=== PATIENT | female | born 1940 | race Caucasian/White ===

== ENCOUNTER 2025-03-31 22:06 | Observation (INO) | payer MEDICARE, SELFPAY ==
[2025-03-31] VITALS (9 sets, daily range): BP systolic 93–128; BP diastolic 51–95; BMI 25.3
[2025-03-31 16:03] LABS: Glucose - Point of Care 161 mg/dl (70-99)
[2025-03-31 16:13] LABS: Hematocrit 42.3 % (37.0-47.0); Hemoglobin 14.2 g/dL (12.0-16.0); Mean Corp Hgb Conc. 33.6 g/dL (33.0-37.0); Mean Corpuscular Volume 88.3 fL (81.0-99.0); Nucleated Red Blood Cells % 0 %; Platelet Count 272 10^3/uL (130-400); Red Cell Dist. Width 13.3 % (11.5-14.5)
[2025-03-31 16:22] LABS: Blood Urea Nitrogen 41 mg/dl (7-17); Calcium 8.7 mg/dl (8.4-10.2); Carbon Dioxide 16 mmol/L (22-30); Chloride 105 mmol/L (98-107); Estimated Creatinine Clearance 33 ml/min; Glucose 165 mg/dl (70-99); Sodium 133 mmol/L (135-145); eGFR 55.21
[2025-03-31 17:08] LABS: ALT (SGPT) 22 U/L (0-35); AST (SGOT) 28 U/L (14-36); Albumin 4.4 g/dl (3.5-5.0); Alkaline Phosphatase 80 U/L (38-126); Blood Urea Nitrogen 40 mg/dl (7-17); Calcium 9.1 mg/dl (8.4-10.2); Carbon Dioxide 19 mmol/L (22-30); Chloride 107 mmol/L (98-107); Estimated Creatinine Clearance 33 ml/min; Glucose 156 mg/dl (70-99); Potassium 4.9 mmol/L (3.5-5.1); Sodium 134 mmol/L (135-145); Total Protein 7.3 g/dl (6.3-8.2); eGFR 55.21
[2025-03-31] MEDS: NSS 500 IV ×2 (18:49→21:28)
[2025-03-31] MEDS: TYLENOL 650 MG PO (18:51)
[2025-03-31 18:55] LABS: Urine Character Clear (Clear)
[2025-03-31 19:05] LABS: Urine Squamous Cell 0-2 /LPF (Few)
[2025-03-31 19:06] LABS: Urine White Cell 0-2 /HPF (0-5)
--- NOTE | 2025-03-31 19:46 | EDRN ---
Per ER Dr Alcantar verbal order, the pt was assisted to ambulate in the ER treatment room for ambulation trial. the pts friend Lara reports the pt normally walks bent over with her cane and the pt can usually ambulate throughout her home slowly
without any assistance other than her cane. the pt required assist x2 staff members to walk 5 feet, her gait is unsteady, and after walking 5 feet the pt stated 'I can't walk anymore, I have to sit down.'
the pts friend Lara stated the pt can normally walk around her home with just her cane.
ER Dr Alcantar was notified of above.
--- NOTE | 2025-03-31 21:16 | ED.GENMED ---
History of Present Illness
General
Chief Complaint: Fainting/Passed Out
Source: patient and care rep
Time Seen by Provider: 03/31/25 16:13
History of Present Illness
History of Present Illness:
Note:
CHIEF COMPLAINT(S)
The patient is confused and does not know why she is here. A friend of the family did arrive later reporting that she went to go to the bathroom and was sitting on the toilet and then she did not hear her talking and noted that she was slumped
over. Friend/caregiver states that she was unresponsive for a brief period time. She is not sure she took an extra dose of her losartan today. Friend/caregiver states that she checks in on her every day with that the patient does live alone. The
patient offers no complaints of chest pain or shortness of breath. She denies headaches. She denies motor weakness.
HISTORY OF PRESENT ILLNESS
The patient is an 84-year-old female with a note history of dementia. She presented to the emergency department after reportedly feeling unwell. Per the conversation, she does not recall specific details clearly. At the time of evaluation. The
patient has no active complaints of chest pain or shortness of breath. Her blood pressure was noted to be 113/70 mmHg.
CHRONIC MEDICAL CONDITIONS SIGNIFICANTLY AFFECTING CARE
The patient has a known history of dementia, which is a significant factor in her current presentation and care needs.
PHYSICAL EXAM
General: Alert but with confusion, no acute distress noted.
Skin: Warm, dry.
Head: Normocephalic, atraumatic.
Neck: Supple, trachea midline.
Eyes, Ears, Nose, Mouth, and Throat: Oral mucosa moist.
Cardiovascular: Normal peripheral perfusion, no edema observed in lower extremities
Respiratory: Respirations are non-labored.
Gastrointestinal: Abdomen nondistended.
Back: Normal range of motion, normal alignment.
Musculoskeletal: Normal range of motion, normal strength; patient able to wiggle feet without difficulty.
Neurological: Alert and oriented to person but disoriented to place and time, no focal neurological deficit observed.
Psychiatric: Cooperative though with noted confusion, appropriate mood and affect given history of dementia.
PLAN
Monitor the patients condition closely in the emergency setting, focusing on her vital signs and cognitive status considering her history of dementia. Provide support and ensure she is comfortable. Evaluate her current living situation to assess
safety and care needs post-discharge.
DIFFERENTIAL DIAGNOSIS
The Differential Diagnosis includes, in no particular order and is not limited to:
1. Transient Ischemic Attack (TIA)
2. Orthostatic Hypotension
3. Syncope/vasovagal syncope
4. Dehydration
5. Electrolyte Imbalance
6. Cerebrovascular Accident (Stroke)
7. Uncontrolled Hypertension
8. Cardiac Arrhythmia
9. Seizure
10. Medication Side Effect
Disposition:
SUMMARY OF ENCOUNTER
The patient is an 84-year-old female who presented to the emergency department following an episode of syncope while on the toilet. She lives at home alone but has a friend who checks in daily. The incident was noted when her caregiver observed her
unresponsive and slumped over briefly. The caregiver reported no suspected head injury as there was no audible fall. The patient complained of back pain and experienced significant difficulty ambulating, requiring two-person assistance. Laboratory
tests revealed mild dehydration. A head CT showed no signs of trauma, while a lumbar CT indicated a subtle anterior loss of height at the L3 vertebra, suggesting a possible acute compression fracture. Given these findings and her inability to
ambulate independently, the decision was made to admit the patient for further observation and physical therapy evaluation. A vasovagal episode is suspected as the cause of the syncope, although she does have frequent PVCs on telemetry monitoring
DISPOSITION
Admit for further observation and physical therapy evaluation.
ASSESSMENT
1. Syncope, likely vasovagal episode
2. Suspected acute L3 vertebral compression fracture
3. Mild dehydration
PLAN
1. Admit for observation and initiate physical therapy to assist with ambulation.
2. Monitor for further episodes of syncope and evaluate hydration levels.
3. Reassess pain management needs and consider orthopedic consultation if necessary.
4. Continue monitoring vital signs and cognitive status given the history of dementia.
INDEPENDENT REVIEW OF LABS AND INTERPRETATION OF TESTS
- My independent review of CBC indicates leukocytosis with a WBC count of 14.8 and neutrophilia with neutrophils at 94.7%.
- My independent review of chemistry panel shows mild dehydration with blood urea nitrogen/creatinine (BUN/Cr) ratio of 40:1.0 and glucose level of 156 mg/dL.
- My independent interpretation of the head CT reveals no signs of trauma.
- My independent interpretation of lumbar CT shows a subtle anterior loss of height at the L3 vertebra body, compatible with a compression fracture of uncertain age, possibly acute.
MEDICAL DECISION MAKING
- Complexity of Data Reviewed: Chronic conditions affecting care: Dementia. Differential Diagnosis includes:
1. Transient Ischemic Attack (TIA)
2. Orthostatic Hypotension
3. Syncope
4. Dehydration
5. Electrolyte Imbalance
6. Cerebrovascular Accident (Stroke)
7. Uncontrolled Hypertension
8. Cardiac Arrhythmia
9. Seizure
10. Medication Side Effect
- Data:
Category 1
- My independent interpretation of head CT and lumbar CT.
Category 2
- Input from caregiver as an independent historian confirming no head injury due to lack of fall.
-Risk:
Care significantly affected by Social Determinants of Health: Lives alone, relies on friends for daily check-ins.
DIAGNOSIS
- Syncope, suspected vasovagal episode (R55)
- Possible acute L3 vertebral compression fracture (M48.50XA)
- Mild dehydration (E86.0)
- Premature ventricular contractions
Phy Exam
Physical Exam
Physical Exam:
.
Course
Orders/Labs/Results
Orders:
Orders
03/31/25 Breakfast
Regular
03/31/25 15:38
Electrocardiogram (*1) Urgent
Reason for Study: Chest Pain
EKG- Treatment ONCE
03/31/25 15:55
Basic Metabolic Panel Urgent
Complete Blood Count/With Diff Urgent
03/31/25 16:39
CMP [Comprehensive Metabolic Panel] Urgent
Magnesium Urgent
Comment: ADD ON
03/31/25 18:42
Straight cath- Treatment ONCE
03/31/25 18:43
Urinalysis Reflex To Culture Urgent
Date Specimen was Collected: 03/31/25
Time Specimen was Collected: 18:42
Urine Microscopic Reflex Cult Urgent
03/31/25 18:48
Acetaminophen [Tylenol] 650 mg .ROUTE .STK-MED ONE
03/31/25 18:49
0.9% Sodium Chloride 500 ml [Nss] 500 ml IV BOLUS
Acetaminophen [Tylenol] 650 mg PO NOW STA
03/31/25 19:55
CT Head W/o Iv Contrast Urgent
Comment:
Reason For Exam: syncope, ? fall
CT Lumbar Spine W/o Iv Contras Urgent
Comment:
Reason For Exam: back pain, ? fall
03/31/25 21:17
0.9% Sodium Chloride 500 ml [Nss] 500 ml IV BOLUS
03/31/25 21:45
Admit/Transfer Patient As Directed
Co-Sign Provider:
Level of Care: Observation services
Assign to:: Telemetry
Physician / Group: nir
Diagnosis: syncope
Reason for Telemetry: Syncope
Date to Stop Telemetry: 04/02/25
Time to Stop Telemetry: 11:00
03/31/25 21:46
PRN Pain Medication Management As Directed
May give lesser potent ordered pain med per pt: Yes
preference::
Protocol:: Medication orders for pain may be administered in a
manner that supports deferring to patient preference
when the pt is:
- Requesting an ordered lesser potent pain medication.
Least to most potent pain medications are defined
as: acetaminophen < NSAID < tramadol < opioids
(morphine, oxycodone, hydromorphone).
- Requesting a lesser dose of the same medication IF
ORDERED.
- Requesting a less intrusive route of administration
if both routes are prescribed by the provider (PO <
IV).
03/31/25 21:47
Code Status As Directed
Resuscitation Status: Full Code
03/31/25 21:56
Add On- LAB Stat
Tests Added?: magnesium
03/31/25 23:38
0.9% Sodium Chloride 1000 ml [Nss] 1,000 ml IV 80 mls/hr
Acetaminophen [Tylenol] 650 mg PO Q4HPRN PRN
Bisacodyl [Dulcolax] 10 mg RECTAL [id number] PRN
Docusate W/Senna [Senokot-S] 1 tablet PO BIDPRN PRN
Polyethylene Glycol Powder [Miralax] 17 grams PO DAILYPRN PRN
03/31/25 23:38
Echo 2D MMode Color/Doppler Routine
Reason for Study: syncope
CARDIOLOGY CONSULT Routine
Consulting Provider: Filippo Larson
Was physician already notified: No
Reason for consult: syncope
Consult Notification Routine
Specialty to Notify: Cardiology
Activity As Directed
Activity Level: As Tolerated
Vital Signs As Directed
Frequency: Per unit guidelines
Ot Eval And Treat Routine
Pt Eval And Treat Routine
Activity Level: As Tolerated
DX Deep Vein Thrombosis Video Routine
04/01/25 06:00
Basic Metabolic Panel IN AM
Cardiovascular Evaluation IN AM
Complete Blood Count/No Diff IN AM
Magnesium IN AM
TSH Reflex To Free T4 IN AM
04/01/25 18:00
Enoxaparin Sodium [Lovenox] 40 mg SC QPM
04/02/25 11:00
DC Protocol for Telemetry ONCE
Abnormal Lab Results
03/31/25 03/31/25 03/31/25
15:55 16:01 16:39
WBC 14.8 H 10^3/uL
(4.8-10.8)
Abs Immat Gran (auto) 0.1 H 10^3/uL
(0-0.05)
Absolute Neuts (auto) 14.0 H 10^3/uL
(1.4-6.5)
Absolute Lymphs (auto) 0.3 L 10^3/uL
(1.2-3.4)
Neutrophils % 94.7 H %
(42.2-75.2)
Lymphocytes % 1.8 L %
(20.5-51.1)
Sodium 133 L mmol/L 134 L mmol/L
(135-145) (135-145)
Carbon Dioxide 16 L mmol/L 19 L mmol/L
(22-30) (22-30)
BUN 41 H mg/dl 40 H mg/dl
(7-17) (7-17)
Glucose 165 H mg/dl 156 H mg/dl
(70-99) (70-99)
Urine Ketones
Ur Occult Blood Reflex
Urine RBC
Urine Bacteria (Reflex)
Urine Albumin (Reflex)
POC Glucose 161 H mg/dl
(70-99)
03/31/25
18:43
WBC
Abs Immat Gran (auto)
Absolute Neuts (auto)
Absolute Lymphs (auto)
Neutrophils %
Lymphocytes %
Sodium
Carbon Dioxide
BUN
Glucose
Urine Ketones 1+ A
(Negative)
Ur Occult Blood Reflex 1+ A
(Negative)
Urine RBC 7-10 A /HPF
(0-2)
Urine Bacteria (Reflex) Few A
(Negative)
Urine Albumin (Reflex) 2+ A
(Neg - Trace)
POC Glucose
03/31/25 15:55
03/31/25 16:39
Vital Signs
Initial and Last Documented VS:
Initial Vital Signs
Temp Pulse Resp BP Pulse Ox
97.3 F 101 20 128/65 95
03/31/25 15:40 03/31/25 15:40 03/31/25 15:40 03/31/25 15:40 03/31/25 15:40
Last Documented Vital Signs
Temp Pulse Resp BP Pulse Ox
98.9 F 89 17 101/57 92
03/31/25 16:32 03/31/25 22:30 03/31/25 22:12 03/31/25 22:12 03/31/25 22:15
*Pulse Oximetry
SaO2: 94
Oxygen Mode of Delivery: Room air
Patient hypoxic: no
*Critical Care Note
Total Time (30-74mins, 75-104mins- exclusive of procedures): Not Applicable
ED Attending Note
-
Portions of this chart may have been created with voice recognition software.� Occasional wrong word or��sound alike� substitutions may have occurred due to the inherent limitations of voice recognition software.
Discharge Plan
Departure
Patient Disposition: Admit
Date of Disposition: 03/31/25
Time of Disposition: 21:17
Admit to: Telemetry
Presentation/result/management discussed w/ accepting MD/DO: Hospitalist
Discharge Problem:
Syncope, Compression fracture of lumbar vertebra, Fluid volume depletion, Premature ventricular contraction
Interventions
Interventions:
*Risk Screen - Suicide Last Done: 03/31/25 15:59
*General Assessment Last Done: 03/31/25 15:59
*Neglect/Abuse Screening Last Done: 03/31/25 15:59
*ED COVID-19 Vaccine History Last Done: 03/31/25 15:59
*ED Influenza Vaccine History Last Done: 03/31/25 15:59
[facility] Fall Risk Assessment Tool Last Done: 03/31/25 15:57
*Nursing Disposition Last Done: 03/31/25 23:34
ED- Cardiac Assessment Last Done: 03/31/25 16:00
ED- Neurological Assessment Last Done: 03/31/25 16:00
Discharge Date and Time
Discharge Date/Time: 03/31/25 23:35
--- NOTE | 2025-03-31 21:26 | HPS.HSE ---
Addendum entered and electronically signed by Faith Fish MD 03/31/25 22:14:
This is an addendum to the H&P written by Sandy Garcia on 03/31/2025. �Patient seen and examined independently with LOCOMOTIVE ENGINEER DIESEL.
84-year-old female past medical history of hypertension, dementia, presenting with syncopal episode while in the toilet. �There was no fall or head injury.� Patient denies back pain. She denies any infectious symptoms, dizziness, chest pain, or
shortness of breath.�
Patient lives alone but has a friend who checks up on her at times.� She may have taken extra dose of Losartan.�
Vital signs show heart rate up to 103. �Blood pressure as low as 98/57.
Labs show leukocytosis of 14.8. UA unremarkable.�
EKG shows sinus rhythm with frequent PVCs.
CT head shows no evidence of acute intracranial abnormality. �Lumbar CT scan shows subtle anterior loss of height of L3 vertebral body compatible with compression fracture of uncertain age could be acute.
Patient with syncopal episode likely vasovagal versus less likely secondary to symptomatic PVCs.� PVCs likely reactive from hypotension. Check orthostatics. �IV fluids given. �Hold losartan. �Telemetry monitoring.� Check magnesium and TSH. Check
echocardiogram. Cardiology consulted.�
Patient without back pain so compression fracture likely old.��
Original Note:
Family Physician
-
Family Physician: * NONE
Chief Complaint
-
syncope
History of Present Illness
84-year-old female with a note history of dementia,HTn presented after she was found sitting on the toilet slumped over. she was not responding. patient lives alone and don't have a family. her neighbor checks on her every day. . She presented to
the emergency department after reportedly feeling unwell.patient denied ELIZABETH, dizzy.denied fever, chills, cough,congestion. denied chest pain,sob. denied abdominal pain,n,v,d. denied dysuria or hematuria.
admitting for further management. patient recived fluids in ER.
Medical History
Past Medical History
Past Medical History: Reports Other
Additional Past Medical History:
carpel tunnel syndrome
back pain
knee derangement
squamous cell ca
Past Surgical History: Reports Other
Additional Past Surgical History:
volvulus surgery
arthritis
growth in nose removal
Social History
Tobacco: Non-smoker
Alcohol: None
Drug: None
Personal: Single
Living: Alone
Family History
Family History: Not pertinent
Allergies / Home Medications
Allergies reflects when Allergies were last updated in [facility].
Home Medications with original date entered in [facility]
Allergy/Medication List:
Allergies
Allergy/AdvReac Type Severity Reaction Status Date / Time
diphenhydramine HCl (From Allergy Unknown Verified 03/31/25 15:52
Benadryl)
Home Medications
losartan 100 mg tablet 100 mg PO DAILY 03/31/25
multivitamin 1 tab PO DAILY 03/31/25
Review of Systems
-
Constitutional: Reports No Symptoms
EENT: Reports No Symptoms
Respiratory: Reports No Symptoms
Cardiac: Reports No Symptoms
Abdomen/GI: Reports No Symptoms
: Reports No Symptoms
Musculoskeletal: Reports No Symptoms
Skin: Reports No Symptoms
Neurological: Reports No Symptoms
Endocrine: Reports No Symptoms
Hematologic/Lymphatic: Reports No Symptoms
Psych: Reports No Symptoms
Physical Exam
Vital Signs
Vital Signs
Temp Pulse Resp BP Pulse Ox
98.9 F 98 16 98/57 94
03/31/25 16:32 03/31/25 21:02 03/31/25 16:00 03/31/25 21:02 03/31/25 21:17
Physical Exam
General: Well Developed, Well Nourished and No Apparent Distress
HEENT: NormoCephalic, Moist mucous membranes and Atraumatic
Respiratory: Clear
Cardiac: S1/S2 and Regular Rhythm; No Murmur or Rub
GI: Soft, Non Tender, Non Distended and Normal Bowel Sounds; No Organomegaly
Rectal: Deferred by Provider
Musculoskeletal: No Clubbing, No Cyanosis and No Edema
Skin: No Rash
Neuro: Nonfocal/grossly intact
Psych: Confused
Laboratory Results
-
03/31/25 15:55
03/31/25 16:39
Laboratory Results
Total Bilirubin 0.7 mg/dl (0.2-1.3) 03/31/25 16:39
AST 28 U/L (14-36) 03/31/25 16:39
ALT 22 U/L (0-35) 03/31/25 16:39
Alkaline Phosphatase 80 U/L (38-126) 03/31/25 16:39
Data Reviewed
-
CT Scan: Report Reviewed by me
Lab Data: Labs Reviewed by me
Impression/Plan
-
#syncope likely vasovagal
-Compression fracture likely chronic-patient denied back pain
-obtain orthostatics
-obtain ECHO
-EKG with sinus rhythm with PVCs
-PT/TO consulted
-tsh in am
-lumbar spine CT with Subtle anterior loss of height of the L3 vertebral body with slight irregularity of the anterior superior margin of the vertebral body. Findings are compatible with a compression fracture, age uncertain, but could be acute.
Please correlate with any localized symptoms.Diffuse degenerative changes of the lumbar spine as described.No convincing evidence for fracture of the sacrum.
-head CT with no evidence of acute intracranial abnormality.Within the posterior aspect of the right globe, there is a linear density. Etiology of this density is uncertain, but question whether it could represent posterior displacement of the lens
replacement from previous cataract surgery.
#leukocytosis likely reactive
-wbc 14.8, patient is afebrile
-ctm
#essential HTN
-losartan held due to hypotension
#DVT Prophylaxis
-Lovenox
#CODE status
-full code
[2025-03-31 22:31] LABS: Magnesium 2.1 mg/dl (1.6-2.3)
[2025-04-01] VITALS (9 sets, daily range): BP systolic 93–137; BP diastolic 47–93; PULSE 99; O2SAT 96; BMI 24.7
[2025-04-01] MEDS: NSS 1000 IV (00:43)
--- NOTE | 2025-04-01 01:16 | PTCARENOTE ---
Pt arrived to unit via stretcher. Pt transferred from stretcher to bed. Pt AAOX1-2. Pt oriented to self and current president. Pt's VSS. Plan of care on going, call thurston within reach.
[2025-04-01] MEDS: TYLENOL 650 MG PO ×4 (02:52→21:17)
[2025-04-01 06:54] LABS: Hematocrit 33.6 % (37.0-47.0); Hemoglobin 11.5 g/dL (12.0-16.0); Mean Corp Hgb Conc. 34.2 g/dL (33.0-37.0); Mean Corpuscular Volume 87.3 fL (81.0-99.0); Platelet Count 229 10^3/uL (130-400); Red Cell Dist. Width 13.4 % (11.5-14.5)
[2025-04-01 07:17] LABS: Blood Urea Nitrogen 28 mg/dl (7-17); Calcium 8.5 mg/dl (8.4-10.2); Carbon Dioxide 16 mmol/L (22-30); Chloride 111 mmol/L (98-107); Estimated Creatinine Clearance 41 ml/min; Glucose 92 mg/dl (70-99); HDL Cholesterol 60 mg/dl; LDL Cholesterol, Calculated 73 mg/dl; Magnesium 2.0 mg/dl (1.6-2.3); Potassium 3.9 mmol/L (3.5-5.1); Sodium 134 mmol/L (135-145); Very Low Density Lipoprotein 13 mg/dl (0-30); eGFR > 60.00
[2025-04-01 08:17] LABS: INR 1.15; PT 14.8 Sec (11.4-14.6)
[2025-04-01 08:18] LABS: APTT 29.5 Sec (23.4-35.0)
[2025-04-01 08:22] LABS: D-Dimer 1.08 ug/mlFEU (0.00-0.50)
[2025-04-01] MEDS: NSS 500 IV (09:16)
--- NOTE | 2025-04-01 09:54 | W.PN.HOSP.TC ---
Today's Communication/Plan
-
see PN
Assessment / Plan
Assessment / Plan
84yo F with PMHx of HTN came after the syncope, found in her bathroom, where she went for diarrhea. Patient was unresponsive 2-3 min. Patient herself has no recollection of events. No additional diarrhea. As per friend she suspects that patient took
too much losartan, which was started back in September 2024, but there also was a concern for 'white coat HTN'
A/P
#Syncope
#PVCs
follow and corect electrolytes
Telemetry
Echo
Cardio consult
Head CT wityhout acute findings
TSH WNL
Probably combination of diarrhea, dehydration and iatrogenic hypotension as BP normal to low in the hospital - stop Losartan
#Chronic sinusitis
FLonase a soutpaient (not available in )
#Elevated ddimer
CTA chest and US LE to r/o VTE
#L3 compression Fx 2/2 back
with 15% loss of height
conservative mgmt with tylenol
Outpatient w/u for osteoporosis
#DJD
pt/OT
tylenol
#Duodenal diverticuum
#8mm and 2 cm L renal cyst
no follow up advised
#Possible posterior lens displacement
outpatient ophthalmology
DVT ppx lovenox
Full code
I have spent at least 51min reviewing chart, test results, communication with consultants, friend over the phone and providing direct patient care
Anticipated Discharge: Within 24 hours
Subjective/Interval History
-
Date of Service: April 01, 2025
Objective Data
-
Labs:
Laboratory Results
04/01/25 04/01/25
06:02 07:54
WBC 9.5
Hgb 11.5 L
Hct 33.6 L
Plt Count 229
PT 14.8 H
INR 1.15
APTT 29.5
Sodium 134 L
Potassium 3.9
Chloride 111 H
Carbon Dioxide 16 L
BUN 28 H
Creatinine 0.8
Glucose 92
Calcium 8.5
Vital Signs:
Vital Signs
Temp Pulse Resp BP Pulse Ox
98.9 F 87 16 112/68 96
04/01/25 07:49 04/01/25 07:49 04/01/25 07:49 04/01/25 07:49 04/01/25 07:49
Review of Systems
-
History Source: Patient
All other systems: Reviewed and negative
Physical Exam
-
General: No Apparent Distress
Respiratory: Clear to Auscultation
Cardiac: Regular Rhythm
GI: Soft, Nontender and Nondistended
Skin: Warm
Neuro: Awake, Alert, Oriented and AO x 3
Psych: Calm
--- NOTE | 2025-04-01 14:25 | PTOTSP ---
Delirium screening indicates possible delirium: 4AT score=10. Patient also has history of dementia.
--- NOTE | 2025-04-01 14:25 | CON.CAR ---
Addendum entered and electronically signed by Mahendra Sloan MD 04/01/25 15:50:
I saw and examined the patient.
The LETTER STAMPING MACHINE OPERATOR or PA's note was reviewed and I agree with the note.
Comment: General: Well developed, well nourished in NAD.
Neck: Supple, no JVD, HJR, carotids +2 B/L, no bruits bilaterally.
Heart: Non displaced PMI, RRR, no murmurs, No S3, S4, no rubs.
Lungs: Scattered rhonchi
Extremities: No clubbing, cyanosis or edema bilaterally.
Neuro: Grossly nonfocal, awake, alert and oriented x3.
Year has a history of dementia, hypertension. She is assisted by her neighbor. Patient does not have any recollection of the events. She thinks she was sitting on the toilet maybe having a bowel movement and apparently passed out. Her neighbor
found her brought her to the ER. Cardiology is consulted for syncope and PVCs.
Echocardiogram was normal. Patient has PVCs which are likely of no clinical significance.
Etiology of syncope is unclear. Likely was a vasovagal event if she was having a bowel movement. Will hold losartan for now. Will check orthostatics. She might need rehab.
Original Note:
Consultation
Consultation Request
Date/Time Consultation Performed: 04/01/25
Requesting Provider: Dr. Fish
Performing Provider: Carey Browne PA-C for Dr. Sloan
Reason for Consultation: syncope, PVCs
Medical History
-
Chief Complaint: syncope
History of Present Illness:
Patient is a 84-year-old female living independently with past medical history of dementia, hypertension who is assisted by a neighbor, Lara. Patient is unsure of what happened, but states she thinks she was sitting on the toilet, maybe having a
BM, and apparently passed out. She denies preceding lightheadedness, dizziness, chest pain, shortness of breath, but is a poor historian. On tele noted to be in SR with PVCs. Cardiology consulted for evaluation. She states she manages her own
medications. She states she sometimes forgets to take her medication but has never had issues with accidentally taking too many. Takes losartan 100mg daily. She states she has a checklist next to her pills to remind her.
PMH:
Dementia
HTN
Past Medical History
Past Medical History: Other (in HPI)
Social History
Tobacco: Non-Smoker
Alcohol: None
Living: Alone
Family History
Family History: Reviewed & Not Pertinent
Allergies / Home Medications
Allergy/AdvReac Type Severity Reaction Status Date / Time
diphenhydramine HCl (From Allergy Unknown Verified 03/31/25 15:52
Benadryl)
�Medication �Instructions �Recorded �Confirmed �Type
losartan 100 mg tablet 100 mg PO DAILY 03/31/25 03/31/25 History
multivitamin 1 tab PO DAILY 03/31/25 03/31/25 History
Review of Systems
-
History Source: Patient
All other systems: Negative unless noted
Physical Exam
Vital Signs
Temp Pulse Resp BP Pulse Ox
98 F 109 14 107/50 95
04/01/25 11:17 04/01/25 11:17 04/01/25 11:17 04/01/25 11:17 04/01/25 11:17
Lab Results
04/01/25 06:02
04/01/25 06:02
Physical Exam
General: No Apparent Distress and Comfortable
HEENT: Normocephalic, Anicteric and Moist Mucous Membranes
Respiratory: Clear and Non Labored Respirations
Cardiac: S1/S2 and Regular Rhythm
GI: Soft, Non Tender, Non Distended and Normal Bowel Sounds
Musculoskeletal: No Clubbing, No Cyanosis and No Edema
Skin: Warm and Dry
Neuro: Awake, Alert and Oriented (to self, place)
Impression / Plan
-
Primary Manufacture Specialist: none
Assessment:
Presentation with syncope
PVCs
Mod to severe TR
L3 compression fracture
Dementia
HTN
Large hiatal hernia by imaging
ECHO 04/01/25: EF 63%, mild AR, mild concentric LVH, moderate to severe TR, PAP 40 mmHg
Plan:
- Patient presented with episode of syncope, presumed vasovagal
- Head CT negative for acute abnormalities
- Echo with results as above, no prior to compare
- Sinus rhythm telemetry with PVCs at times in pattern of bigeminy, however no NSVT noted, follow while admitted. Patient asymptomatic
- Check orthostatic vital signs. Presently holding outpatient losartan
- PT/OT
- Case management following, may require SNF upon discharge
- Discussed with nursing
Data Reviewed
-
EKG: Tracing Personally Visualized and interpreted
CT Scan: Report Reviewed by me
Medical Tests (Nuc Med, Echo etc): Report Reviewed by me
Labs: Labs Reviewed by me
Old Records: Reviewed
--- NOTE | 2025-04-01 16:02 | CM ---
Addendum entered by Lesly Grider 04/01/25 16:23:
Pt lives in a one story home, no steps.
Addendum entered by Lesly Grider 04/01/25 16:10:
Patient and neighbor reviewed the OBS form; copy provided and signed copy placed in chart.
Original Note:
CM met with Trini and her neighbor to discuss discharge plans. Recommendation is for SNF, however pt is not agreeable to SNF. Plan is for discharge to home with hired caregivers and [facility].
Patient does have an option for SNF via [facility] if she changes her mind. I spoke with Efren Lees who will make a referral to social work so patient has additional support from [facility].
Pt's primary care provider is Ruth Tapia at [facility].
Pt's neighbor, Lara Raphael, is the primary contact and can be reached at [phone].
Plan: Discharge to home with [facility] and hired caregivers.
[2025-04-01] MEDS: LOVENOX 40 MG SC (17:25)
[2025-04-02] MEDS: LIDOCAINE 4% PATCH 1 PATCH TOPICAL ×2 (00:23→10:33)
[2025-04-02] MEDS: TORADOL 15 MG IV (00:25)
[2025-04-02 03:00] VITALS: BP 126/79
[2025-04-02 07:30] VITALS: BP 170/110
[2025-04-02] MEDS: TYLENOL 650 MG PO ×2 (08:26→15:49)
--- NOTE | 2025-04-02 09:55 | W.PN.HOSP.TC ---
Today's Communication/Plan
-
dc when bed available
Assessment / Plan
Assessment / Plan
84yo F with PMHx of HTN came after the syncope, found in her bathroom, where she went for diarrhea. Patient was unresponsive 2-3 min. Patient herself has no recollection of events. No additional diarrhea. As per friend she suspects that patient took
too much losartan, which was started back in September 2024, but there also was a concern for 'white coat HTN'. Seen by cardiology, recommended to stop Losartan. also found L3 compression Fx with mild-moderate pain. PT/OT recommended STR - medically
stable for d/c, pending patient and CM discussion to decide on dispo
A/P
#Syncope
#PVCs
follow and correct electrolytes
Telemetry
Echo: EF 63%, mild AR, mild LVH, moderate-severe TR, no regional wall motion abnormalities
Cardio consult: hold BP meds
Head CT without acute findings
TSH WNL
Probably combination of diarrhea, dehydration and iatrogenic hypotension as BP normal to low in the hospital - stop Losartan
#Chronic sinusitis
Flonase as outpaient (not available in ) bridging to Jessie
#Elevated ddimer
CTA chest and US LE r/o VTE
#L3 compression Fx 2/2 back
with 15% loss of height
conservative mgmt with Tylenol, Lidocaine patch
Outpatient w/u for osteoporosis
#DJD
pt/OT
tylenol
#Duodenal diverticulum
#8mm and 2 cm L renal cyst
no follow up advised
#Possible posterior lens displacement
outpatient ophthalmology
#Ambulatory dysfunction
PT/OT recommended rehab.
DVT ppx lovenox
Full code
I have spent at least 36min reviewing chart, test results, communication with consultants, friend over the phone and providing direct patient care
Anticipated Discharge: Today
Subjective/Interval History
-
Date of Service: April 02, 2025
Objective Data
-
Vital Signs:
Vital Signs
Temp Pulse Resp BP Pulse Ox
97.7 F 92 16 170/110 95
04/02/25 07:30 04/02/25 07:30 04/02/25 07:30 04/02/25 07:30 04/02/25 07:30
I&O
04/01/25 04/02/25 04/03/25
06:59 06:59 06:59
Intake Total 360 / 360
Balance 360 / 360
Review of Systems
-
History Source: Patient
All other systems: Reviewed and negative
Physical Exam
-
General: No Apparent Distress
HEENT: Normocephalic
Respiratory: Clear to Auscultation
Cardiac: Regular Rhythm
GI: Soft, Nontender and Nondistended
Musculoskeletal: No Clubbing, No Cyanosis and No Edema
Neuro: Awake, Alert, Oriented and AO x 3
Psych: Calm and Apparent Dementia
[2025-04-02 11:30] VITALS: BP 130/79; BP 139/79; BP 143/78; PULSE 89; PULSE 98
[2025-04-02] MEDS: REMOVE LIDOCAINE PATCH 1 PATCH REMOVE ×2 (11:48→20:34)
--- NOTE | 2025-04-02 12:10 | W.PN.CARDCBS ---
Today's Communication / Plan
-
Hypertensive at present with holding losartan
Will add low-dose Toprol with PVCs
Likely needs rehab and would consider monitor on discharge
Impression / Plan
-
Primary Electrical Troubleshooter: none
Assessment:
Presentation with syncope
PVCs
Mod to severe TR
L3 compression fracture
Dementia
HTN
Large hiatal hernia by imaging
ECHO 04/01/25: EF 63%, mild AR, mild concentric LVH, moderate to severe TR, PAP 40 mmHg
Plan:
Etiology of syncope felt to be vasovagal
She continues with PVCs which are likely of no clinical significance
She is now hypertensive with holding losartan
Will add low-dose Toprol
Likely will need rehab as patient is relying on neighbor for support
Will consider monitor on discharge
Progress Note - Electrical Troubleshooter
Subjective
Date of Service: April 02, 2025
No complaints
Objective
Labs:
04/01/25 06:02
04/01/25 06:02
Labs
Hgb 11.5 g/dL (12.0-16.0) L 04/01/25 06:02
Hct 33.6 % (37.0-47.0) L 04/01/25 06:02
Plt Count 229 10^3/uL (130-400) 04/01/25 06:02
PT 14.8 Sec (11.4-14.6) H 04/01/25 07:54
INR 1.15 04/01/25 07:54
APTT 29.5 Sec (23.4-35.0) 04/01/25 07:54
Sodium 134 mmol/L (135-145) L 04/01/25 06:02
Potassium 3.9 mmol/L (3.5-5.1) 04/01/25 06:02
BUN 28 mg/dl (7-17) H 04/01/25 06:02
Creatinine 0.8 mg/dL (0.6-1.0) 04/01/25 06:02
Glucose 92 mg/dl (70-99) 04/01/25 06:02
Vital Signs and I&O:
Vital Signs
Temp Pulse Resp BP Pulse Ox
97.7 F 92 16 170/110 95
04/02/25 07:30 04/02/25 07:30 04/02/25 07:30 04/02/25 07:30 04/02/25 07:30
Vital Signs
Temp Pulse Resp BP Pulse Ox
97.7 F 92 16 170/110 95
04/02/25 07:30 04/02/25 07:30 04/02/25 07:30 04/02/25 07:30 04/02/25 07:30
Intake & Output
03/31/25 04/01/25 04/02/25 04/03/25
06:59 06:59 06:59 06:59
Intake Total 360 / 360
Balance 360 / 360
Physical Exam
Physical Exam
General: Well developed, well nourished in NAD.
Neck: Supple, no JVD, HJR, carotids +2 B/L, no bruits bilaterally.
Heart: Non displaced PMI, RRR, no murmurs, No S3, S4, no rubs.
Lungs: Scattered rhonchi
Extremities: No clubbing, cyanosis or edema bilaterally.
Neuro: Grossly nonfocal, awake, alert and oriented x3.
[2025-04-02] MEDS: TOPROL XL 25 MG PO (12:30)
[2025-04-02] MEDS: ULTRAM 25 MG PO ×2 (14:37→20:43)
[2025-04-02 15:27] LABS: Hematocrit 36.8 % (37.0-47.0); Hemoglobin 12.5 g/dL (12.0-16.0); Mean Corp Hgb Conc. 34.0 g/dL (33.0-37.0); Mean Corpuscular Volume 86.2 fL (81.0-99.0); Nucleated Red Blood Cells % 0 %; Platelet Count 244 10^3/uL (130-400); Red Cell Dist. Width 13.9 % (11.5-14.5)
[2025-04-02 15:50] LABS: ALT (SGPT) 19 U/L (0-35); AST (SGOT) 27 U/L (14-36); Albumin 3.5 g/dl (3.5-5.0); Alkaline Phosphatase 75 U/L (38-126); Blood Urea Nitrogen 19 mg/dl (7-17); Calcium 8.7 mg/dl (8.4-10.2); Carbon Dioxide 19 mmol/L (22-30); Chloride 108 mmol/L (98-107); Estimated Creatinine Clearance 36 ml/min; Glucose 81 mg/dl (70-99); Potassium 3.7 mmol/L (3.5-5.1); Sodium 135 mmol/L (135-145); Total Protein 6.2 g/dl (6.3-8.2); eGFR > 60.00
[2025-04-02 16:00] VITALS: BP 145/88
[2025-04-02] MEDS: LOVENOX 40 MG SC (18:02)
[2025-04-02 19:30] VITALS: BP 133/85
[2025-04-02 23:00] VITALS: BP 141/91
[2025-04-03] MEDS: MORPHINE SULFATE 1 MG IV (02:13)
[2025-04-03 03:36] VITALS: BP 143/88
[2025-04-03 07:30] VITALS: BP 143/76
[2025-04-03] MEDS: LIDOCAINE 4% PATCH 1 PATCH TOPICAL (09:40)
[2025-04-03] MEDS: TOPROL XL 25 MG PO (09:43)
[2025-04-03] MEDS: COLACE 100 MG PO ×2 (09:43→20:25)
[2025-04-03] MEDS: ULTRAM 25 MG PO ×2 (09:46→18:33)
--- NOTE | 2025-04-03 11:12 | W.PN.HOSP.TC ---
Today's Communication/Plan
-
medically stable for d/c - CM for rehab
Assessment / Plan
Assessment / Plan
84yo F with PMHx of HTN came after the syncope, found in her bathroom, where she went for diarrhea. Patient was unresponsive 2-3 min. Patient herself has no recollection of events. No additional diarrhea. As per friend she suspects that patient took
too much losartan, which was started back in September 2024, but there also was a concern for 'white coat HTN'. Seen by cardiology, recommended to stop Losartan. also found L3 compression Fx with mild-moderate pain. PT/OT recommended STR - medically
stable for d/c, pending patient and CM discussion to decide on dispo
A/P
#Syncope
#PVCs
follow and correct electrolytes
Telemetry
Echo: EF 63%, mild AR, mild LVH, moderate-severe TR, no regional wall motion abnormalities
Cardio consult: hold BP meds
Head CT without acute findings
TSH WNL
Probably combination of diarrhea, dehydration and iatrogenic hypotension as BP normal to low in the hospital - stop Losartan
#Chronic sinusitis
Flonase as outpaient (not available in ) bridging to Jessie
#Elevated ddimer
CTA chest and US LE r/o VTE
#L3 compression Fx with back pain
Radiating to L upper back, not pleuritic pain, but worse on movement
with 15% loss of height
conservative mgmt with Tylenol, Ultram, Lidocaine patch, Morphine PRN
Outpatient w/u for osteoporosis
#DJD
pt/OT
tylenol
#Duodenal diverticulum
#8mm and 2 cm L renal cyst
no follow up advised
#Possible posterior lens displacement
outpatient ophthalmology
#Ambulatory dysfunction
PT/OT recommended rehab.
DVT ppx lovenox
Full code
I have spent at least 36min reviewing chart, test results, communication with consultants, friend over the phone and providing direct patient care
Anticipated Discharge: Within 24 hours
Subjective/Interval History
-
Date of Service: April 03, 2025
Objective Data
-
Vital Signs:
Vital Signs
Temp Pulse Resp BP Pulse Ox
98.0 F 68 18 143/76 93
04/03/25 07:30 04/03/25 07:30 04/03/25 07:30 04/03/25 09:43 04/03/25 07:30
I&O
04/02/25 04/03/25 04/04/25
06:59 06:59 06:59
Intake Total 360 / 360 600 / 600
Balance 360 / 360 600 / 600
Review of Systems
-
History Source: Patient
All other systems: Reviewed and negative
Musculoskeletal: Reports Other (mid back pain)
Physical Exam
-
General: No Apparent Distress
HEENT: Normocephalic
Cardiac: Regular Rhythm
GI: Soft, Nontender and Nondistended
Neuro: Awake, Alert, Oriented and AO x 3
Psych: Calm and Apparent Dementia
[2025-04-03 11:30] VITALS: BP 154/89
[2025-04-03] MEDS: TYLENOL 650 MG PO (15:11)
[2025-04-03 15:55] VITALS: BP 139/86
[2025-04-03] MEDS: LOVENOX 40 MG SC (18:08)
[2025-04-03 19:00] VITALS: BP 149/85
[2025-04-03] MEDS: REMOVE LIDOCAINE PATCH 1 PATCH REMOVE (20:26)
[2025-04-03 23:00] VITALS: BP 154/90
[2025-04-04] MEDS: ULTRAM 25 MG PO ×2 (01:45→08:52)
[2025-04-04 03:00] VITALS: BP 158/94
[2025-04-04 07:00] VITALS: BP 175/88
[2025-04-04] MEDS: LIDOCAINE 4% PATCH 1 PATCH TOPICAL (08:47)
[2025-04-04] MEDS: COLACE 100 MG PO (08:48)
[2025-04-04] MEDS: TOPROL XL 25 MG PO (08:48)
--- NOTE | 2025-04-04 10:49 | CM ---
Addendum entered by Roxana Fernández 04/04/25 16:40:
1800 transport set - updated Matilde & friend Lara
Addendum entered by Roxana Fernández 04/04/25 14:36:
CALL received from Saniya from [facility] - patient is approved for [facility] under [facility] waiver program
waiver information was sent to [facility]
tt hospitalist, updated [facility] liaison
spoke with patient and friend Lara (correction to below friend name/contact Lara)
PLAN: [facility] SNF
REPORT #: [phone]
FAX #: [phone]
Transportation forms on chart
Addendum entered by Roxana Fernández 04/04/25 12:37:
faxed clinicals to [phone] Saniya at [facility] to eval for MSSP waiver for [facility]
Original Note:
spoke with patient and friend Mala agreeable to [facility]
notified Matilde liaison from [facility]
CM called [facility] [phone] & spoke with Saniya/Symone regarding MSSP waiver program
Requested note from Sat 04/02 from hospitalist (participating hospitalist) be faxed as well as updated PT/OT notes (they are aware to eval patient today) fax to [phone]
PLAN: SNF, await if patient qualifies MSSP waiver, PT/OT to eval today - CM Will fax clinicals
[2025-04-04] MEDS: SENOKOT 17.2 MG PO (10:52)
[2025-04-04] MEDS: MIRALAX 17 GRAMS PO (10:52)
[2025-04-04] MEDS: PEPCID 20 MG PO (10:52)
[2025-04-04 11:00] VITALS: BP 140/83
--- NOTE | 2025-04-04 11:31 | W.PN.CARDCBS ---
Addendum entered and electronically signed by Sammie Stock DO 04/04/25 18:15:
I saw and examined the patient.
The Finishing Operator's note was reviewed and I agree with the note.
Comment: Patient was seen and examined. Offers no new complaints.
General: No acute distress, AAOX3
Heart: Regular, positive S1/S2, 2/6 SM
Lungs: CTA b/l, negative wheezes/rales/rhonchi
Abd: Positive BS, NT/ND, neg rebound/rigidity/guarding
Ext:no edema
Plan:
-Presented with syncope. Possibly vasovagal.
-No prolonged arrhythmias noted on telemetry, but is having frequent multifocal PVCs w/ brief run of NSVT noted.
-Continue Toprol XL 25 mg once a day
-Echo 04/01 with preserved EF, mod to severe TR as noted above.
-Initially hypotensive�losartan discontinued. Orthostatic vital signs negative
-Will discharge w/ a [address] to follow for arrhythmia.
-Cardiology follow up arranged.
-Will sign off, recall if needed
Original Note:
Today's Communication / Plan
-
Continue Toprol
Discharge with [address]
Follow up arranged.
Impression / Plan
-
Primary Barrel Cutter: none, initially seen by Dr. Sloan
Assessment:
Presentation with syncope
PVCs
NSVT
Mod to severe TR
L3 compression fracture
Dementia
HTN
Large hiatal hernia by imaging
Echo 04/01/2025: EF 63%, mild AR, mild concentric LVH, moderate to severe TR, PAP 40 mmHg
Plan:
-Presented with syncope. Possibly vasovagal.
-No prologned arrhythmias noted on telemetry, but is having frequent multifocal PVCs w/ brief run of NSVT noted.
-Echo 04/01 with preserved EF, mod to severe TR as noted above.
-Will discharge w/ a [address] to follow for arrhythmia.
-Initially hypotensive this admission and losartan stopped. Orthostatic VS negative.
-BPs have been rising. Now on Toprol 25mg daily. Continue to follow and may consider restarting losartan vs uptitration of metoprolol as OP
-Cardiology follow up arranged.
Progress Note - Barrel Cutter
Subjective
Date of Service: April 04, 2025
No further syncope
Objective
Labs:
04/02/25 15:02
04/02/25 15:02
Labs
Hgb 12.5 g/dL (12.0-16.0) 04/02/25 15:02
Hct 36.8 % (37.0-47.0) L 04/02/25 15:02
Plt Count 244 10^3/uL (130-400) 04/02/25 15:02
PT 14.8 Sec (11.4-14.6) H 04/01/25 07:54
INR 1.15 04/01/25 07:54
APTT 29.5 Sec (23.4-35.0) 04/01/25 07:54
Sodium 135 mmol/L (135-145) 04/02/25 15:02
Potassium 3.7 mmol/L (3.5-5.1) 04/02/25 15:02
BUN 19 mg/dl (7-17) H 04/02/25 15:02
Creatinine 0.9 mg/dL (0.6-1.0) 04/02/25 15:02
Glucose 81 mg/dl (70-99) 04/02/25 15:02
Vital Signs and I&O:
Vital Signs
Temp Pulse Resp BP Pulse Ox
98.8 F 78 16 175/88 96
04/04/25 07:00 04/04/25 08:48 04/04/25 07:00 04/04/25 08:48 04/04/25 07:00
Vital Signs
Temp Pulse Resp BP Pulse Ox
98.8 F 78 16 175/88 96
04/04/25 07:00 04/04/25 08:48 04/04/25 07:00 04/04/25 08:48 04/04/25 07:00
Intake & Output
04/02/25 04/03/25 04/04/25 04/05/25
06:59 06:59 06:59 06:59
Intake Total 360 / 360 600 / 600 800 / 800
Balance 360 / 360 600 / 600 800 / 800
Physical Exam
Physical Exam
GEN: No distress
LUNGS: no audible wheeze
CV: SR on tele
[2025-04-04 11:50] VITALS: BP 144/85; PULSE 85
[2025-04-04 11:57] VITALS: BP 144/85; PULSE 85
[2025-04-04] MEDS: MORPHINE SULFATE 1 MG IV (13:12)
--- NOTE | 2025-04-04 14:06 | W.PN.HOSP.TC ---
Addendum entered and electronically signed by Maria Fernanda Pavon MD 04/04/25 15:42:
More than 30 minutes spent in discharge including
Final examination of the patient
Summarizing hospital stay
Instructions for continuing care to all relevant caregivers
Preparation of discharge records, prescriptions, and referral forms
Original Note:
Today's Communication/Plan
-
await auth for rehab
Assessment / Plan
Assessment / Plan
79 with syncope while in the toilet. No fall she lives alone from checks on her. Blood pressure was low in the ER
CTA chest-no acute disease. Mild right middle lobe atelectasis versus scarring. Large hiatal hernia. Too small to characterize hypodense hepatic lesion likely a cyst or hemangioma. Similar findings in the left kidney. Simple left renal cyst.
Ultrasound of the lower extremity-no DVT
L-spine [id number] mild L3 compression fracture. Multilevel DJD DDD. Stable bilateral SI joint osteoarthritis
Echo 04/01/2024-EF 63%, mild AR, mild concentric LVH, moderate to severe TR, PA pressure 40 mmHg
Feeling OK
CVS: S1-S2 normal, SM at RHB
Chest: CTA B/L
Abdomen: Soft, NT / Bowel sounds present
Extremities: No edema, normal pulses
HEADWAITER/HEADWAITRESS: Non focal exam
# Syncope
Possibly a combination of diarrhea, dehydration, and hypotension.
Losartan stopped. Metoprolol low-dose started because patient also had PVCs
# Chronic Sinusitis- Uses Flonase as OP- now on Jessie
# Hypertension-continue metoprolol
# Elevated D-Dimer-CTA chest-negative
# Osteoporotic L3 compression Fx with back pain with 15% loss of height
Continue Tylenol, Ultram, lidocaine patch, stop morphine
# Migraines
# Cognitive impairment
# Large hiatal hernia-add Pepcid
# DVT prophylaxis-Lovenox
# Full code
D/W Case management
D/W Lara Fear
Part of this note was created using voice recognition system. Occasional wrong word or��sound alike� substitutions may have inadvertently occurred due to the inherent limitations of voice recognition software. If noted kindly bring it to my
attention for correction.
Anticipated Discharge: Within 24 hours
Subjective/Interval History
-
Date of Service: April 04, 2025
Objective Data
-
Vital Signs:
Vital Signs
Temp Pulse Resp BP Pulse Ox
98.4 F 76 16 140/83 94
04/04/25 11:00 04/04/25 11:00 04/04/25 11:00 04/04/25 11:00 04/04/25 11:00
I&O
04/03/25 04/04/25 04/05/25
06:59 06:59 06:59
Intake Total 600 / 600 800 / 800
Balance 600 / 600 800 / 800
[2025-04-04 15:00] VITALS: BP 168/97
--- NOTE | 2025-04-04 15:42 | W.DS.TRANS ---
Addendum entered and electronically signed by Maria Fernanda Pavon MD 04/04/25 15:58:
Dictation- [id number]
Original Note:
DC Summary - [facility]
-
Discharge Instructions:
Discharge Diagnosis/Procedures Syncope
Chronic sinusitis
Hypertension
Osteoporotic L3 compression fracture
DDD lumbar spine
Migraines
Current impairment
Hiatal hernia
Diet As tolerated
Activity As tolerated,With assistance
Driving Restrictions No driving
Other Services OT,PT
Instructions:
Stand-Alone Forms:
Changes to Home Medications: Yes
Discharge Medications:
DC Medications w/original date entered in [employer]
acetaminophen 325 mg tablet 650 mg (2 x 325 mg) PO Q4HPRN PRN mild pain/ELIZABETH/temp> 100.4F #90 tabs 04/02/25
fluticasone propionate 50 mcg/actuation nasal spray,suspension (Flonase Allergy Relief) 1 spray intranasal DAILY #16 grams 04/02/25
docusate sodium 100 mg capsule 100 mg PO BID Constipation #0 caps 04/04/25
famotidine 20 mg tablet 20 mg PO DAILY Gastrointestinal issue #0 tabs 04/04/25
lidocaine 4 % topical patch 1 patch topical DAILY pain #0 ea 04/04/25
metoprolol succinate 25 mg tablet,extended release 24 hr 25 mg PO DAILY Heart disease/condition #0 tabs 04/04/25
multivitamin 1 tab PO DAILY Supplement #0 tabs 04/04/25
oxycodone 5 mg tablet 5 mg PO Q4HPRN PRN moderate/severe pain #12 tabs 04/04/25
polyethylene glycol 3350 17 gram oral powder packet 17 g PO DAILY Constipation #0 ea 04/04/25
sennosides 8.6 mg tablet (Angeline-haylee) 17.2 mg (2 x 8.6 mg) PO BID Constipation #0 tabs 04/04/25
Home Medication Changes
Pepcid, Senokot, MiraLAX, oxycodone, metoprolol are new. Losartan stopped
Pending Results: No
[2025-04-04] MEDS: FLUZONE HIGH-DOSE 2025-26 0.5 ML IM (16:03)
[2025-04-04] MEDS: TYLENOL 650 MG PO (16:04)
[2025-04-04] MEDS: ROXICODONE 5 MG PO (16:04)
[2025-04-04] MEDS: LOVENOX SC (16:05)
== END 2025-04-04 18:28 ==
LOC: 3 WEST ACU 22:06
PROVIDERS: Internal Medicine; Registered Nurse; ADMITTING PHYSICIAN Hospitalist; ATTENDING PHYSICIAN Hospitalist; CONSULT PHYSICIAN Internal Medicine Cardiovascular Disease; EMERGENCY PHYSICIAN Emergency Medicine
DX: R55 Syncope and collapse (principal); F03.90 Unspecified dementia, unspecified severity, without behavioral disturbance, psychotic disturbance, mood disturbance, and anxiety; E86.0 Dehydration; D72.829 Elevated white blood cell count, unspecified; I49.3 Ventricular premature depolarization; R07.9 Chest pain, unspecified; I11.9 Hypertensive heart disease without heart failure; M47.816 Spondylosis without myelopathy or radiculopathy, lumbar region; K44.9 Diaphragmatic hernia without obstruction or gangrene; M80.08XA Age-related osteoporosis with current pathological fracture, vertebra(e), initial encounter for fracture; N28.1 Cyst of kidney, acquired; K76.9 Liver disease, unspecified; R79.89 Other specified abnormal findings of blood chemistry; I95.89 Other hypotension; M16.0 Bilateral primary osteoarthritis of hip; M51.369 Other intervertebral disc degeneration, lumbar region without mention of lumbar back pain or lower extremity pain; K57.10 Diverticulosis of small intestine without perforation or abscess without bleeding; I47.20 Ventricular tachycardia, unspecified; G43.909 Migraine, unspecified, not intractable, without status migrainosus; R41.89 Other symptoms and signs involving cognitive functions and awareness; M53.3 Sacrococcygeal disorders, not elsewhere classified; I70.0 Atherosclerosis of aorta; M46.1 Sacroiliitis, not elsewhere classified; I08.3 Combined rheumatic disorders of mitral, aortic and tricuspid valves; J32.9 Chronic sinusitis, unspecified; Z60.2 Problems related to living alone; Z88.8 Allergy status to other drugs, medicaments and biological substances; Z79.899 Other long term (current) drug therapy; Z91.148 Patient's other noncompliance with medication regimen for other reason; Z23 Encounter for immunization
CPT/HCPCS: 51701; 70450; 71275; 72110; 72131; 80048; 80053; 80061; 81003; 81015; 82962; 83735; 84443; 85025; 85027; 85379; 85610; 85730; 90662; 93005; 93306; 93970; 96360; 96361; 97116; 97163; 97167; 97530; 97535; 99285; G0008; G0378; Q9967